=== PATIENT | female | born 1970 | race Caucasian/White ===

== ENCOUNTER 2016-06-18 10:42 | Emergency (ER) | payer SELFPAY ==
[2016-06-18] MEDS ORDERED: ORPHENADRINE CITRATE 60 MG/2ML IM ONE (11:30)
[2016-06-18] MEDS ORDERED: KETOROLAC TROMETHAMINE 60 MG/2 ML VIAL IM ONE (11:30)
[2016-06-18 13:07] VITALS: BP 140/63
--- NOTE | 2016-06-18 13:46 | Diagnostic Imaging Report ---
AIDA TRACEY [facility] [id number] [facility] [address] [id number] Report Submission Date: Jun 18, 2016 12:28:59 PM [employer] Patient Study Name: [facility] Date: Jun 18, 2016 12:03:27 PM [employer] Modality Type: CR Gender: F Description: SPINE : 70 Institution: [facility] Physician: AIDA TRACEY Lumbar spine - three views Clinical history: Low back pain. Findings: Examination lumbar spine in AP, lateral and lateral coned-down views demonstrates the vertebrae to be anatomically aligned. There is mild narrowing of L5-S1 disc space. Small anterior and lateral osteophytes are seen in the mid and lower lumbar vertebrae. Pedicles are intact and the paravertebral soft tissues are within normal limits. There is no evident fracture. Impression: 1. Mild spondylosis. 2. No fracture. Electronically signed on Jun 18, 2016 12:28:59 PM [employer] ENGINE [employer] by: Marques WONG
--- NOTE | 2016-06-18 20:02 | ED Physician Documentation ---
Low Back Pain - HISTORIAN Historian: patient - HPI Stated Complaint: Back Pain Chief Complaint: Low Back Pain/ Injury Additional Information: woke up stiff in low back this am History: history of chronic pain:, back pain Onset: hours (3) Duration: continues in ED Recent Injury: Yes Context: fall Where: home Other Injuries: back Severity: moderate Quality: similar- prior back pain Associated Symptoms: denies: fever, chills, sweating, constipation, incontinence , nausea, vomiting, problems urinating, difficulty walking, light-headedness, dizziness, numbness, weakness Worsened By:: movement to RT flexion, movement to LT flexion Relieved By: nothing Further Comments: no - ROS CONST: no problems CVS/RESP: none EYES/ENT: none MS/SKIN/LYMPH: leg pain Neuro/Psych: none GI/: denies: abdominal pain, black stools - PAST HX Past History: back injury Surgeries/Procedures: Immunizations: referred to PCP Allergies/Adverse Reactions: Allergies Allergy/AdvReac Type Severity Reaction Status Date / Time codeine Allergy Verified 06/18/16 10:54 Home Medications: Ambulatory Orders Medication Instructions Recorded NK [NK] 03/06/15 - SOCIAL HX Smoking History: cigarettes Alcohol Use: heavy Drug Use: none - FAMILY HX Family History: no significant history - VITAL SIGNS Vital Signs: Vital Signs Temp Pulse Resp BP Pulse Ox 98 F 72 16 140/63 99 06/18/16 10:45 06/18/16 13:06 06/18/16 13:06 06/18/16 13:06 06/18/16 13:06 - REVIEWED ASSESSMENTS Nursing Assessment Reviewed: Yes Vitals Reviewed: Yes Progress - Results/Orders Results/Orders: x-ray ordered of L-spine - Progress Progress: pt. given 60 mg Norflex and 60 mg Toradol im in er with improvement Critical Care Note - Critical Care Note Total Time (mins): 0 ED Results Lab/Radiology - Lab Results Lab Results: none ordered - Radiology Radiology Impressions: l-spine x-ray shows ddd L5-S1 - Orders Orders: ED Orders Category Date Time Status L SPINE 2 OR 3 VIEWS [RAD] Stat Exams 06/18/16 Completed Ketorolac Tromethamine [Toradol] Med 06/18/16 11:30 Discontinued 60 mg IM NOW ONE Orphenadrine Citrate [Norflex] Med 06/18/16 11:30 Discontinued 60 mg IM NOW ONE Low Back Pain/Injury - Physical Exam General Appearance: alert, moderate distress EENT: eye inspection normal, ENT inspection normal, pharynx normal, no signs of dehydration, SP, no nystagmus, TM's nml Neck: non-tender, painless ROM, trachea midline Resp/CVS: chest non-tender, breath sounds nml, heart sounds nml, no resp. distress, lungs clear, reg. rate & rhythm Abdomen: non-tender, no organomegaly Back: vertebral point-tendernes (L3-S1), muscle spasm Straight Leg Raising: Negative Right, Positive Left Neuro/Psych: oriented x3, motor nml, sensation nml, bilat. doriflexion nml, reflexes nml Skin: warm/dry, normal color Extremities: non-tender, normal range of motion, no evidence of injury, no edema Discharge Clincal Impression: Lumbosacral strain Qualifiers: Encounter type: initial encounter Qualified Code(s): S39.012A - Strain of muscle, fascia and tendon of lower back, initial encounter Referrals: Ricco Rodriguez MD [Primary Care Provider] - 2 Days Home Medications: Ambulatory Orders NK [NK] 03/06/15 Comments: discharged in stable condition with script for Meloxicam 7.5 mg 1 p.o. bid and Parafon Forte DSC 500 mg 1 p.o. qid Condition: Stable Disposition: 01 HOME, SELF-CARE Decision to Admit: NO Decision Time: 13:00
== END 2016-06-18 13:06 | disposition home or self-care (01) ==
LOC: ED 10:42
DX: S39.012A Strain of muscle, fascia and tendon of lower back, initial encounter (principal); X58.XXXA Exposure to other specified factors, initial encounter; Y93.9 Activity, unspecified; Y99.9 Unspecified external cause status
CPT/HCPCS: 72100; J1885; J2360; 96372; 99283